=== PATIENT | male | born 1995 | race Caucasian/White ===

== ENCOUNTER 2017-04-16 17:06 | Emergency (ER) | payer MEDICAID ==
[2017-04-16 17:10] VITALS: O2SAT 100
--- NOTE | 2017-04-16 17:45 | C.PDOC ---
History Of Present Illness 22 yr old male presents to the ER for evaluation of right ankle pain and swelling, gradually developing since yesterday. Patient reports he sustained a twisting injury. States the pain is localized and worse with walking. Denies leg pain, obvious deformity, vascular deficits, sensory deficits, weakness or numbness. Time Seen by Provider: 04/16/17 17:39 Chief Complaint (Nursing): Lower Extremity Problem/Injury History Per: Patient History/Exam Limitations: no limitations Onset/Duration Of Symptoms: Days (1) Past Medical History Reviewed: Historical Data, Nursing Documentation, Vital Signs Vital Signs: Last Vital Signs Temp 98.0 F 04/16/17 18:08 Pulse 70 04/16/17 18:08 Resp 16 04/16/17 18:08 BP 115/75 04/16/17 18:08 Pulse Ox 100 04/16/17 18:25 Family History: States: No Known Family Hx - Social History Hx Alcohol Use: Yes Hx Substance Use: No - Immunization History Hx Tetanus Toxoid Vaccination: Yes Hx Influenza Vaccination: No Hx Pneumococcal Vaccination: No Review Of Systems Except As Marked, All Systems Reviewed And Found Negative. Musculoskeletal: Positive for: Other ((+) Right ankle pain and swelling). Negative for: Leg Pain Neurological: Negative for: Weakness, Numbness Physical Exam - Physical Exam Appears: Well, Non-toxic, No Acute Distress Skin: Normal Color, Warm, No Rash, No Ecchymosis Head: Atraumatic, Normacephalic Extremity: Normal ROM (Rt ankle and foot), Tenderness (over lateral malleolus of Right ankle), No Deformity, Swelling (mild over lateral malleolus of Right ankle) Neurological/Psych: Oriented x3, Normal Speech, Normal Motor, Normal Sensation, Normal Reflexes ED Course And Treatment O2 Sat by Pulse Oximetry: 100 (RA) Pulse Ox Interpretation: Normal - Other Rad X-Ray - Right Ankle X-Ray: Interpreted by Me, Viewed By Me Interpretation: (-) acute fx or dislocation Progress Note: On re-eval, pt is afebrile, hemodynamicaly stable. Non-toxic. Right ankle: exam c/w srpain, mild edema and tenderness over lateral malleolus. FAROM, no neurovascular deficits, no defomrity. Xray review (-) fx of dilsoctaion. Justen wrap, air cats applied to Right ankle. Pt advised and ref. to f/u with Ortho in 2-3 days for re-eavl. return to ED if any worsening or new changes. Medical Decision Making Medical Decision Making: PLAN: * X-Ray - Right Ankle Disposition Counseled Patient/Family Regarding: Studies Performed, Diagnosis, Need For Followup, Rx Given - Disposition Referrals: [facility] [Outside] Disposition: HOME/ ROUTINE Disposition Time: 18:01 Condition: STABLE Additional Instructions: LIGHT DUTY TO RIGHT ANKLE RICE-REST,ICE,COMPRESSION,ELEVATION IBUPROFEN DAILY AFTER FOOD FOLLOW UP WITH ORTHOPEDIST CLINIC IN 2-3 DAYS FOR RE-EVALUATION. RETURN TO ED IF ANY WORSENING OR NEW CHANGES. Prescriptions: Ibuprofen [Motrin Tab] 600 mg PO Q6 #20 tab Instructions: Ankle Sprain (ED), Ankle Stirrup Splint (ED) Forms: [facility] (Lao) - Clinical Impression Clinical Impression: Ankle sprain - PA / [employer] / Resident Statement MD/DO has reviewed & agrees with the documentation as recorded. - Scribe Statement The provider has reviewed the documentation as recorded by the Scribe All medical record entries made by the Scribe were at my direction and personally dictated by me. I have reviewed the chart and agree that the record accurately reflects my personal performance of the history, physical exam, medical decision making, and the department course for this patient. I have also personally directed, reviewed, and agree with the discharge instructions and disposition.
[2017-04-16 18:08] VITALS: BP 115/75; PULSE 70; RESP 16; TEMP 98
--- NOTE | 2017-04-16 19:53 | RAD ---
PROCEDURE: Right Ankle Radiographs. HISTORY: TRAUMA COMPARISON: None FINDINGS: BONES: No acute fracture or destructive bony lesion identified. JOINTS: Normal. No osteoarthritis. Ankle mortise maintained. Talar dome intact SOFT TISSUES: Normal. OTHER FINDINGS: None. IMPRESSION: Normal right ankle radiographs.
== END 2017-04-16 18:10 | disposition home or self-care (01) ==
LOC: C.ER 17:06
DX: S93.401A Sprain of unspecified ligament of right ankle, initial encounter (principal); X50.1XXA Overexertion from prolonged static or awkward postures, initial encounter